=== PATIENT | female | born 1960 | race Caucasian/White ===

== ENCOUNTER 2024-01-22 06:56 | Outpatient (RCR) | payer OTHER, SELFPAY | END 2024-01-22 23:59 | disposition home or self-care (01) | LOC: RPT 06:56 | PROVIDERS: ATTENDING PHYSICIAN Orthopaedic Surgery | DX: M67.951 Unspecified disorder of synovium and tendon, right thigh (principal); M76.31 Iliotibial band syndrome, right leg; M54.16 Radiculopathy, lumbar region; Z73.6 Limitation of activities due to disability | CPT/HCPCS: 97110; 97112; 97162 ==

== ENCOUNTER 2024-02-13 14:55 | Outpatient (RCR) | payer OTHER, SELFPAY | END 2024-02-13 23:59 | disposition home or self-care (01) | LOC: RPT 14:55 | PROVIDERS: ATTENDING PHYSICIAN Orthopaedic Surgery | DX: M67.951 Unspecified disorder of synovium and tendon, right thigh (principal); M76.31 Iliotibial band syndrome, right leg; M54.16 Radiculopathy, lumbar region; Z73.6 Limitation of activities due to disability | CPT/HCPCS: 97010; 97110; 97112; 97140 ==

== ENCOUNTER → 2024-03-18 10:05 | Outpatient (REF) | payer OTHER, SELFPAY | LOC: HWWDC 10:05 | PROVIDERS: ATTENDING PHYSICIAN Family Medicine | DX: Z12.31 Encounter for screening mammogram for malignant neoplasm of breast (principal); Z78.0 Asymptomatic menopausal state | CPT/HCPCS: 77063; 77067; 77080 ==

== ENCOUNTER → 2024-04-29 13:57 | Outpatient (REF) | payer OTHER, SELFPAY | LOC: HWRAD 13:57 | PROVIDERS: ATTENDING PHYSICIAN Internal Medicine | DX: R07.89 Other chest pain (principal); R06.02 Shortness of breath | CPT/HCPCS: 71046 ==

== ENCOUNTER → 2024-05-01 07:51 | Outpatient (REF) | payer OTHER, MEDICARE, SELFPAY | LOC: RAD 07:51 | PROVIDERS: ATTENDING PHYSICIAN Internal Medicine | DX: R09.89 Other specified symptoms and signs involving the circulatory and respiratory systems (principal) | CPT/HCPCS: 93880 ==

== ENCOUNTER → 2024-05-12 08:03 | Outpatient (REF) | payer OTHER, MEDICARE, SELFPAY | LOC: HWRCS 08:03 | PROVIDERS: ATTENDING PHYSICIAN Nuclear Medicine Nuclear Cardiology; FAMILY PHYSICIAN Internal Medicine | DX: R06.02 Shortness of breath (principal); R07.2 Precordial pain; E78.2 Mixed hyperlipidemia; G47.33 Obstructive sleep apnea (adult) (pediatric) | CPT/HCPCS: 93306 ==

== ENCOUNTER → 2024-05-14 07:57 | Outpatient (REF) | payer OTHER, MEDICARE, SELFPAY | LOC: DHCBC/DCA 07:57 | PROVIDERS: ATTENDING PHYSICIAN Nuclear Medicine Nuclear Cardiology; FAMILY PHYSICIAN Internal Medicine | DX: R06.02 Shortness of breath (principal); R07.2 Precordial pain; E78.2 Mixed hyperlipidemia; G47.33 Obstructive sleep apnea (adult) (pediatric) | CPT/HCPCS: 78452; 93017; A9500 ==

== ENCOUNTER → 2024-06-03 11:21 | Outpatient (REF) | payer MEDICARE, OTHER, SELFPAY | LOC: HWRAD 11:21 | PROVIDERS: ATTENDING PHYSICIAN Internal Medicine | DX: M54.16 Radiculopathy, lumbar region (principal) | CPT/HCPCS: 72114 ==

== ENCOUNTER 2024-07-28 09:18 | Outpatient (RCR) | payer MEDICARE, OTHER, SELFPAY | END 2024-07-28 23:59 | disposition home or self-care (01) | LOC: RPT 09:18 | PROVIDERS: ATTENDING PHYSICIAN Student in an Organized Health Care Education/Training Program; FAMILY PHYSICIAN Internal Medicine | DX: M25.551 Pain in right hip (principal); M70.61 Trochanteric bursitis, right hip; M76.01 Gluteal tendinitis, right hip; Z73.6 Limitation of activities due to disability | CPT/HCPCS: 97110; 97112; 97162 ==

== ENCOUNTER 2024-08-18 13:07 | Outpatient (RCR) | payer MEDICARE, OTHER, SELFPAY | END 2024-08-18 23:59 | disposition home or self-care (01) | LOC: RPT 13:07 | PROVIDERS: ATTENDING PHYSICIAN Student in an Organized Health Care Education/Training Program; FAMILY PHYSICIAN Internal Medicine | DX: M25.551 Pain in right hip (principal); M70.61 Trochanteric bursitis, right hip; M76.01 Gluteal tendinitis, right hip; Z73.6 Limitation of activities due to disability | CPT/HCPCS: 97010; 97110; 97112; 97140 ==

== ENCOUNTER → 2024-08-27 12:13 | Outpatient (REF) | payer MEDICARE, OTHER, SELFPAY | LOC: CLAB 12:13 | PROVIDERS: ATTENDING PHYSICIAN Specialist | DX: C44.310 Basal cell carcinoma of skin of unspecified parts of face (principal) | CPT/HCPCS: 88307; 88332; 88331 ==

== ENCOUNTER → 2024-09-25 14:29 | Outpatient (REF) | payer MEDICARE, OTHER, SELFPAY | LOC: DHSLP 14:29 | PROVIDERS: ATTENDING PHYSICIAN Internal Medicine; FAMILY PHYSICIAN Internal Medicine | DX: G47.33 Obstructive sleep apnea (adult) (pediatric) (principal) | CPT/HCPCS: 95800 ==

== ENCOUNTER 2024-11-09 04:27 | Emergency (ER) | payer MEDICARE, OTHER, SELFPAY ==
[2024-11-09 04:29] VITALS: BP 119/81
[2024-11-09 04:55] LABS: Urine Character Slightly Cloudy (Clear)
[2024-11-09 06:36] LABS: Urine Squamous Cell >30 /LPF (Few); Urine White Cell >100 /HPF (0-5)
[2024-11-09 06:37] LABS: Urine Red Blood Cell >100 /HPF (0-2)
--- NOTE | 2024-11-09 07:13 | ED.GENMED ---
Addendum entered and electronically signed by Javier Iniguez PA-C 11/12/24 06:14:
On cefdinir, appropriate per C&S
Original Note:
History of Present Illness
General
Chief Complaint: Female Kettle Chipper/Gu symptoms
Source: patient
Time Seen by Provider: 11/09/24 07:01
History of Present Illness
History of Present Illness:
64-year-old female presents with 2 to 3 days worth of suprapubic pressure increased urinary frequency and dysuria. She denies any nausea or vomiting or fever. No significant back pain. No change in her bowel movements. Seen at the urgent care
yesterday and felt not to have a UTI. No other complaints at this time. Her symptoms seem to have worsened since then
Past History
Past History
ED Past Medical History: Hypercholesterolemia and Other (Hypothyroidism, anxiety, diverticulosis, hysterectomy, right shoulder replacement, asthma, dystonia)
ED Past Surgical History: Gynecological (Total Hysterectomy) and Orthopedic (Right shoulder replacement)
Social History
Tobacco: Non-smoker
Alcohol: None
Drug: None
Personal:
Living: with family
Family History
Family History: Other (mother with ovarian cancer)
Phy Exam
Physical Exam
Physical Exam:
General: Well-appearing female no acute respiratory distress
HEENT normal cephalic atraumatic
Heart: Regular rate and rhythm
Lungs: Clear no wheeze
Abdomen: There is mild suprapubic tenderness no costovertebral angle tenderness otherwise soft
Extremities: No cyanosis
Course
Orders/Labs/Results
Orders:
Orders
11/09/24 04:37
Urinalysis Reflex To Culture Urgent
Date Specimen was Collected: 11/09/24
Time Specimen was Collected: 04:33
Urine Microscopic Reflex Cult Urgent
Urine Culture Urgent
MICHELLE Source: U
Specimen Description:
Date Specimen was Collected: 11/09/24
Time Specimen was Collected: 04:33
11/09/24 07:12
Cefdinir [Omnicef] 300 mg PO NOW STA
Abnormal Lab Results
11/09/24
04:37
Ur Occult Blood Reflex 4+ A
(Negative)
Leukocyte Esterase Rfl 3+ A
(Negative)
Urine RBC >100 A /HPF
(0-2)
Urine WBC (Reflex) >100 A /HPF
(0-5)
Urine Bacteria (Reflex) Moderate A
(Negative)
Urine Albumin (Reflex) 2+ A
(Neg - Trace)
Vital Signs
Initial and Last Documented VS:
Initial Vital Signs
Temp Pulse Resp BP Pulse Ox
98.5 F 87 16 119/81 98
11/09/24 04:29 11/09/24 04:29 11/09/24 04:29 11/09/24 04:29 11/09/24 04:29
Last Documented Vital Signs
Temp Pulse Resp BP Pulse Ox
98.5 F 87 16 119/81 98
11/09/24 04:29 11/09/24 04:29 11/09/24 04:29 11/09/24 04:29 11/09/24 04:29
MDM/Problems Addressed
Differential Diagnosis Includes:
Urinary symptoms of dysuria frequency and suprapubic pressure. Consider UTI. She is afebrile no flank pain do not suspect pyelonephritis. Do not suspect kidney stone. Urinalysis today with white blood cells some blood and bacteria. There is
some squamous cells which could suggest possibly contaminated specimen however given the patient's worsening symptoms we will treat with Omnicef.
*Pulse Oximetry
SaO2: 98
Oxygen Mode of Delivery: Room air
Patient hypoxic: no
*Critical Care Note
Total Time (30-74mins, 75-104mins- exclusive of procedures): Not Applicable
ED Attending Note
-
Portions of this chart may have been created with voice recognition software.� Occasional wrong word or��sound alike� substitutions may have occurred due to the inherent limitations of voice recognition software.
Discharge Plan
Departure
Patient Disposition: Home (Routine Discharge)
Date of Disposition: 11/09/24
Time of Disposition: 07:15
Patient with high blood pressure during this ER visit?: No
Discharge Problem:
Acute UTI
Instructions: Urinary Tract Infection, Adult (DC)
Prescriptions:
New
cefdinir 300 mg capsule
300 mg PO BID Qty: 14 0RF
No Action
levothyroxine [Synthroid] 50 MCG tablet
50 mcg PO DAILY
paroxetine HCl 20 MG tablet
20 mg PO DAILY
zaleplon 10 MG capsule
10 mg PO PRN PRN (Reason: sleep)
Vitamin C
1,000 mg PO PRN PRN (Reason: extra)
rabeprazole 20 MG tablet,delayed release (DR/EC)
20 mg PO DAILY
clonazepam 0.5 MG tablet
0.5 mg PO HS
simvastatin 10 MG tablet
20 mg PO HS
Referrals:
Wellington Trujillo MD [Family Provider, Internal Medicine]
Activity Restrictions/Additional Instructions:
Drink plenty of fluids. Take antibiotics as directed. Return here for nausea vomiting fever increased pain or other concerning findings
Interventions
Interventions:
*Risk Screen - Suicide Last Done: 11/09/24 04:29
*General Assessment Last Done: 11/09/24 04:29
*Neglect/Abuse Screening Last Done: 11/09/24 04:29
*ED- Fall Risk Assessment Last Done: 11/09/24 06:52
*ED COVID-19 Vaccine History Last Done: 11/09/24 06:52
ED-Female Genitourinary Assessment Last Done: 11/09/24 06:52
Discharge Date and Time
Print Language: LUXEMBOURGER
[2024-11-09] MEDS: OMNICEF 300 MG PO (07:16)
[2024-11-09 07:23] VITALS: BP 122/78
== END 2024-11-09 07:24 | disposition home or self-care (01) ==
LOC: EMR 04:27
PROVIDERS: Student in an Organized Health Care Education/Training Program; EMERGENCY PHYSICIAN Emergency Medicine; FAMILY PHYSICIAN Internal Medicine
DX: N39.0 Urinary tract infection, site not specified (principal); E03.9 Hypothyroidism, unspecified; F41.9 Anxiety disorder, unspecified; E78.00 Pure hypercholesterolemia, unspecified; J45.909 Unspecified asthma, uncomplicated; Z90.710 Acquired absence of both cervix and uterus; Z96.611 Presence of right artificial shoulder joint
CPT/HCPCS: 99282; 81003; 81015; 87077; 87086; 87186

== ENCOUNTER → 2025-04-07 13:44 | Outpatient (REF) | payer MEDICARE, OTHER, SELFPAY | LOC: RAD 13:44 | PROVIDERS: ATTENDING PHYSICIAN Internal Medicine | DX: Z00.00 Encounter for general adult medical examination without abnormal findings (principal); Z82.49 Family history of ischemic heart disease and other diseases of the circulatory system | CPT/HCPCS: 76770 ==